=== PATIENT | male | born 1990 | race Hispanic/Latino ===

== ENCOUNTER 2017-05-18 21:48 | Emergency (ER) | payer SELFPAY ==
[~2017-05-18] VITALS: Ht 175.3 cm; Wt 97.5 kg
[2017-05-18] MEDS ORDERED: CYCLOBENZAPRINE10 MG PO (23:25)
== END 2017-05-18 23:42 | disposition home or self-care (01) ==
LOC: ED 21:48
DX: G89.29 Other chronic pain (principal); M25.511 Pain in right shoulder; F17.200 Nicotine dependence, unspecified, uncomplicated
CPT/HCPCS: 99283

== ENCOUNTER 2018-07-25 02:43 | Emergency (ER) | payer SELFPAY ==
[~2018-07-25] VITALS: Ht 175.3 cm; Wt 97.5 kg
[~2018-07-25 02:43] MED LIST: CYCLOBENZAPRINE10 MG PO
--- OUTSIDE RECORDS SUMMARY | 2018-07-25 02:48 | XMS ---
PreManage Notification: JORGE LUIS SALMON Security [employer] Events No recent Security Events currently on file CRITERIA MET - Group Notification CARE PROVIDERS There are no care providers on record at this time. Becka has no Care Guidelines for this patient. Sabiha VISIT COUNT (12 MO.) 1 YAAKOV Collado TOTAL 1 NOTE: Visits indicate total known visits. ED/UCC VISIT TRACKING (12 MO.) 07/25/2018 02:44 YAAKOV [facility] TYPE: Emergency COMPLAINT: - POSS DRUG INGESTION INPATIENT VISIT TRACKING (12 MO.) No inpatient visits to display in this time frame [email or web address]
== END 2018-07-25 03:22 | disposition home or self-care (01) ==
LOC: ED 02:43
DX: T62.0X1A Toxic effect of ingested mushrooms, accidental (unintentional), initial encounter (principal); F17.200 Nicotine dependence, unspecified, uncomplicated; Z79.899 Other long term (current) drug therapy
CPT/HCPCS: 99284